=== PATIENT | female | born 1970 | race Caucasian/White ===

== ENCOUNTER 2024-12-15 16:49 | Emergency (ER) | payer MEDICAID, OTHER | END 2024-12-15 17:48 | disposition home or self-care (01) | LOC: JP.ED 16:49 | DX: I49.3 Ventricular premature depolarization (principal); R00.2 Palpitations; Z79.899 Other long term (current) drug therapy; Z86.16 Personal history of COVID-19 | CPT/HCPCS: 99284 ==